=== PATIENT | male | born 1965 | race Caucasian/White ===

== ENCOUNTER 2016-10-16 06:45 | Emergency (ER) | payer BC, OTHER ==
[2016-10-16 06:58] VITALS: BP 144/93; PULSE 70; RESP 18; TEMP 100.2
[2016-10-16] MEDS ORDERED: IBUPROFEN 800 MG TAB PO STA (07:28)
--- NOTE | 2016-10-16 07:31 | ED ---
General Adult HPI - General Chief complaint: Abdominal Pain Stated complaint: rib injury Time Seen by Provider: 10/16/16 07:10 Source: patient, RN notes reviewed Mode of arrival: ambulatory Limitations: no limitations - History of Present Illness Initial comments: This is a 50-year-old male who states he slipped on a wet surface going for 1 area to another 2 days ago when he landed on the edge of the air conditioner unit landing against it with his right ribs. He states she's had right lateral rib pain since that time he states he sees last night and felt a pop. He tries to move or take a deep breath he states the pain is sharp and 10/10 in severity at rest is much improved. He denies any fevers chills sweats any overt shortness of breath he denies any other injuries other than some tingling occasionally to his fingers. He denies any head neck or back pain or other injury. No focal deficits. No cough or phlegm production. - Related Data Previous Rx's Medication Instructions Recorded Ibuprofen [Motrin] 800 mg PO Q6HR PRN #20 tab 10/16/16 Orphenadrine [Norflex] 100 mg PO Q12H #7 tablet.er 10/16/16 Allergies Allergy/AdvReac Type Severity Reaction Status Date / Time No Known Allergies Allergy Verified 10/16/16 06:58 Review of Systems ROS Statement: Those systems with pertinent positive or pertinent negative responses have been documented in the HPI. ROS Other: All systems not noted in ROS Statement are negative. Past Medical History Past Medical History: No Reported History History of Any Multi-Drug Resistant Organisms: None Reported Past Surgical History: Orthopedic Surgery Past Psychological History: No Psychological Hx Reported Smoking Status: Never smoker Past Alcohol Use History: Occasional Past Drug Use History: None Reported General Exam - General Exam Comments Initial Comments: This is a well-developed well-nourished awake alert oriented 3 male Limitations: no limitations General appearance: alert, anxious Head exam: Present: atraumatic, normocephalic, normal inspection Eye exam: Present: normal appearance, PERRL, EOMI. Absent: scleral icterus, conjunctival injection, periorbital swelling ENT exam: Present: normal exam, mucous membranes moist Neck exam: Present: normal inspection, full ROM. Absent: tenderness, meningismus, lymphadenopathy Respiratory exam: Present: normal lung sounds bilaterally, chest wall tenderness (Tenderness palpation over the right lateral chest wall no definite step-off or crepitation). Absent: respiratory distress, wheezes, rales, rhonchi , stridor Cardiovascular Exam: Present: regular rate, normal rhythm, normal heart sounds. Absent: systolic murmur, diastolic murmur, rubs, gallop, clicks GI/Abdominal exam: Present: soft, normal bowel sounds. Absent: distended, tenderness, guarding, rebound, rigid Extremities exam: Present: normal inspection, full ROM, normal capillary refill. Absent: tenderness, pedal edema, joint swelling, calf tenderness Back exam: Present: normal inspection Neurological exam: Present: alert, oriented X3, CN II-XII intact Psychiatric exam: Present: normal affect, normal mood Skin exam: Present: warm, dry, intact, normal color. Absent: rash Course Vital Signs 10/16/16 06:53 Temperature 100.2 F H Pulse Rate 70 Respiratory 18 Rate Blood Pressure 144/93 O2 Sat by Pulse 98 Oximetry Medical Decision Making - Medical Decision Making I did discuss the findings with the patient he states he is asymptomatic he had a cold about a week and a half ago but no rhinorrhea no earaches sore throat cough or other symptoms he does not smoke and did not drink any hot beverages he was informed about the temperature was taken here. He will be discharged the presentation is consistent with rib contusion/chest wall contusion he'll be placed on appropriate medication. - Radiology Data Radiology results: report reviewed (I did review the x-ray and report no acute findings.), image reviewed Disposition Clinical Impression: Contusion of rib on right side, Contusion of ribs Disposition: HOME SELF-CARE Condition: Good Instructions: Rib Contusion (ED), Fever in Adults (ED) Prescriptions: Ibuprofen [Motrin] 800 mg PO Q6HR PRN #20 tab PRN Reason: Pain Orphenadrine [Norflex] 100 mg PO Q12H #7 tablet.er
--- NOTE | 2016-10-16 07:50 | XR ---
EXAMINATION TYPE: XR ribs RT w pa chest xray DATE OF EXAM: 10/16/2016 7:46 AM CLINICAL HISTORY: Fall injury 2 days ago with chest and right-sided rib pain. TECHNIQUE: Single frontal view of the chest is obtained. A frontal and oblique images of the right-si ded ribs are acquired. COMPARISON: None FINDINGS: Slight rotation to the right is present. There is no focal air space opacity, pleural effus ion, or pneumothorax seen. The cardiac silhouette size is within normal limits. Retrocardiac opacity is felt to reflect a moderate size hiatal hernia. The osseous structures are intact. Dedicated images of the right-sided ribs show no acute displaced fracture. Overlying soft tissue is u nremarkable. IMPRESSION: 1. No acute cardiopulmonary process. 2. No acute displaced right-sided rib fractures are seen.
== END 2016-10-16 08:51 | disposition home or self-care (01) ==
LOC: EC 06:45
DX: S20.211A Contusion of right front wall of thorax, initial encounter (principal); R50.9 Fever, unspecified; R10.9 Unspecified abdominal pain; W22.09XA Striking against other stationary object, initial encounter
CPT/HCPCS: 99284

== ENCOUNTER 2016-12-24 06:00 | Day surgery (SDC) | payer BC ==
[~2016-12-24 06:00] MED LIST: DEXAMETHASONE SOD PHOSPHATE 10 MG/ML 1 ML VIAL IV ONE; HEPARIN SODIUM,PORCINE 5,000 UNIT/ML 1 ML VIAL SQ ONE; LIDOCAINE 1% 20 ML VIAL (10MG/ML) FOR IV START INTRADERMA PRN; MIDAZOLAM 2 MG/2 ML VIAL IV PRN; ONDANSETRON 4 MG/2 ML VIAL IVP ONE; Pre Op ABX Message 1 EACH MISC MISCELLANE ONE; SCOPOLAMINE 1.5MG/72HR PATCH TRANSDERM ONE
[2016-12-24] MEDS: LACTATED RINGERS 1,000 ML IV SCH ×3 (06:33→13:13)
[2016-12-24] MEDS ORDERED: GLYCOPYRROLATE 0.2 MG/ML 2 ML VIAL ONE (08:12)
[2016-12-24] MEDS ORDERED: PROPOFOL 10 MG/ML 20 ML VIAL IV ONE (08:12)
[2016-12-24] MEDS ORDERED: ROCURONIUM BROMIDE 10 MG/ML 10 ML VIAL IV ONE (08:12)
[2016-12-24] MEDS ORDERED: ceFAZolin 1,000 MG VIAL ONE (08:12)
[2016-12-24] MEDS ORDERED: NEOSTIGMINE 1 MG/ML 10 ML VIAL ONE (08:12)
[2016-12-24] MEDS ORDERED: SUCCINYLCHOLINE CHLORIDE 100 MG/5 ML SYR IV ONE (08:12)
[2016-12-24] MEDS ORDERED: MIDAZOLAM 2 MG/2 ML VIAL ONE (08:12)
[2016-12-24] MEDS ORDERED: fentaNYL (PF) 50 MCG/ML 2 ML AMP ONE (08:12)
[2016-12-24] MEDS ORDERED: MORPHINE SULFATE (PF) 0.3 MG/0.3 ML SYR ONE (08:12)
--- NOTE | 2016-12-24 08:15 | P.GSHP ---
History of Present Illness H&P Date: 12/24/16 Chief Complaint: Recurrent right inguinal hernia 's is a 51-year-old male presents today for laparoscopic robotic-assisted repair of recurrent right inguinal hernia. Patient [place] surgery [place] Patient developed a mass approximately 3 months ago. Patient has a reducible right inguinal hernia. - Constitutional Constitutional: Reports as per HPI Past Medical History Past Medical History: No Reported History History of Any Multi-Drug Resistant Organisms: None Reported Past Surgical History: Hernia Repair, Orthopedic Surgery Past Psychological History: No Psychological Hx Reported Smoking Status: Never smoker Past Alcohol Use History: Occasional Past Drug Use History: None Reported Medications and Allergies Home Medications Medication Instructions Recorded Confirmed Type No Known Home Medications [No 12/12/16 12/12/16 History Known Home Medications] Allergies Allergy/AdvReac Type Severity Reaction Status Date / Time No Known Allergies Allergy Verified 12/12/16 08:09 Surgical - Exam Vital Signs Temp Pulse Resp BP Pulse Ox 97.7 F 64 16 128/82 98 12/24/16 06:16 12/24/16 06:16 12/24/16 06:16 12/24/16 06:16 12/24/16 06:16 - General well developed, no distress - Eyes PERRL - ENT normal pinna - Neck no masses - Respiratory normal expansion - Cardiovascular Rhythm: regular - Abdomen Abdomen: soft, non tender Hernia: inguinal (recurrent right ), reducible Assessment and Plan Plan: Recurrent right inguinal hernia. We'll perform laparoscopic robotic-assisted repair.
[2016-12-24] MEDS ORDERED: SODIUM CHLORIDE 0.9% 50 ML with ceFAZolin 2,000 MG IV ONE ×2 (08:20)
[2016-12-24] MEDS ORDERED: BUPIVACAIN-EPI 0.25%-1:200,000 30 ML VIAL SQ ONE (08:45)
--- NOTE | 2016-12-24 09:46 | P.OP ---
Date of Procedure: 12/24/16 Preoperative Diagnosis: Recurrent right inguinal hernia Postoperative Diagnosis: Recurrent right inguinal hernia Procedure(s) Performed: Laparoscopic robotic assistance repair of recurrent right inguinal hernia Anesthesia: TJ Surgeon: Kelton Hurd Estimated Blood Loss (ml): 5 Pathology: none sent Condition: stable Disposition: PACU Description of Procedure: Laphe patient's placed on the operating table in the supine position. The patient received general anesthesia. The patient's abdomen was prepped and draped in usual sterile fashion. The skin was anesthetized 1% local Xylocaine at the incision sites. Using an 11 blade a skin incision was made at the umbilicus. The fascia was grasped with a Jyoti and then the peritoneal cavity was entered with the Veress needle. Position of the Veress needle was confirmed with a positive drop test. After adequate insufflation a 5 mm trocar was placed into the peritoneal cavity. The Laparoscope was placed the peritoneal cavity. And a robotic 8 mm trocar was placed in the right lateral position and then another 8 mm robotic trochars placed in the left lateral position. The original 5 mm trocar was exchanged for a 12 mm trocar. The patient was placed in reverse Trendelenburg and then the patient was docked to the robot. Next the peritoneum over top of the hernia was incised and then using blunt and sharp dissection and electrocautery the hernia sac was dissected free from the floor of the inguinal canal. The hernia sac was completely reduced into the peritoneal cavity. And then using the Pro auto servicer mesh the hernia was repaired. The peritoneum was then sutured with 20V lock suture. The patient was then undocked the robot. The needle was withdrawn from the peritoneal cavity. The umbilical trocar site was closed with 0 Ethibond suture. The skin was closed interrupted 3-0 Monocryl suture. Dermabond dressing was applied. Patient was sent to recovery in stable condition.
[2016-12-24] MEDS: HYDROmorphone 1 MG/ML 1 ML SYRINGE IVP PRN ×4 (10:05→10:25)
[2016-12-24] MEDS ORDERED: KETOROLAC 30 MG/ML 1 ML VIAL IVP ONE (10:07)
[2016-12-24 10:15] VITALS: RESP 18; TEMP 97
[2016-12-24] MEDS ORDERED: HYDROcodone/APAP 7.5-325MG 1 EACH TAB PO ONE (11:19)
[2016-12-24 12:45] VITALS: BP 131/66; PULSE 60
== END 2016-12-24 13:20 | disposition home or self-care (01) ==
LOC: OR 06:00
PROVIDERS: ATTEND Surgery
DX: K40.91 Unilateral inguinal hernia, without obstruction or gangrene, recurrent (principal); I10 Essential (primary) hypertension; Z79.899 Other long term (current) drug therapy
CPT/HCPCS: 49651; S2900

== ENCOUNTER 2018-03-24 11:10 | Observation (INO) | payer BC ==
[2018-03-24] MEDS ORDERED: ASPIRIN 81 MG PO STA (12:02)
--- NOTE | 2018-03-24 12:05 | ED ---
General Adult HPI - General Chief complaint: Chest Pain Stated complaint: Headache/Left Arm Pain Time Seen by Provider: 03/24/18 11:48 Source: patient, RN notes reviewed Mode of arrival: ambulatory Limitations: no limitations - History of Present Illness Initial comments: Patient 52-year-old male presenting to the emergency room today with a chief complaint of chest pain. Patient does admit that he's had an elevated blood pressure over the last few weeks. He did see his family doctor a week ago was started on lisinopril patient does admit that the pressure seems to be improving. He does not that he's been having headaches over the last few weeks. Patient does admit to some congestion with sinuses. Patient admits to some chest pain. He states he gets a "twinge" the side of the chest wall that comes and goes. Patient states currently pain-free at this time. Patient admits to have some chest discomfort when checking it. Patient does admit to father had a heart attack in his 50s. He denies any other complaints or symptoms. Patient denies any recent fever, chills, shortness of breath, back pain, abdominal pain, nausea or vomiting, numbness or tingling, dysuria or hematuria, constipation or diarrhea, visual changes, or any other complaints. - Related Data Home Medications Medication Instructions Recorded Confirmed Lisinopril [Zestril] 20 mg PO HS 03/24/18 03/24/18 Allergies Allergy/AdvReac Type Severity Reaction Status Date / Time No Known Allergies Allergy Verified 03/24/18 12:24 Review of Systems ROS Statement: Those systems with pertinent positive or pertinent negative responses have been documented in the HPI. ROS Other: All systems not noted in ROS Statement are negative. Past Medical History Past Medical History: Hypertension History of Any Multi-Drug Resistant Organisms: None Reported Past Surgical History: Hernia Repair, Orthopedic Surgery Past Psychological History: No Psychological Hx Reported Smoking Status: Never smoker Past Alcohol Use History: Occasional Past Drug Use History: None Reported General Exam - General Exam Comments Initial Comments: General: The patient is awake and alert, in no distress, and does not appear acutely ill. Eye: Pupils are equal, round and reactive to light, extra-ocular movements are intact. No nystagmus. There is normal conjunctiva bilaterally. No signs of icterus. Ears, nose, mouth and throat: There are moist mucous membranes and no oral lesions. Tender over the frontal maxillary sinuses. No tenderness in the temporalis. Neck: The neck is supple, there is no tenderness or JVD. Cardiovascular: There is a regular rate and rhythm. No murmur, rub or gallop is appreciated. Respiratory: Lungs are clear to auscultation, respirations are non-labored, breath sounds are equal. No wheezes, stridor, rales, or rhonchi. Musculoskeletal: Normal ROM, no tenderness. Strength 5/5. Sensation intact. Pulses equal bilaterally 2+. Neurological: A&O x 3. CN II-XII intact, There are no obvious motor or sensory deficits. Coordination appears grossly intact. Speech is normal. Skin: Skin is warm and dry and no rashes or lesions are noted. Psychiatric: Cooperative, appropriate mood & affect, normal judgment. Limitations: no limitations Course Vital Signs 03/24/18 03/24/18 03/24/18 11:27 12:08 12:39 Temperature 98.5 F Pulse Rate 59 L 59 L 49 L Respiratory 16 18 Rate Blood Pressure 170/88 128/82 149/91 O2 Sat by Pulse 98 97 Oximetry EKG Findings - EKG Comments: EKG Findings:: EKG performed at 1145: Shows normal sinus rhythm at 60 bpm. KS interval 158. QRS 100. QT/QTC 398/98. No acute ST changes. Medical Decision Making - Medical Decision Making Patient's labs been reviewed and negative cardiac enzymes in the emergency room. Patient's EKG showing no acute changes at this time. Patient chest pain- free. Does have family history. Patient has never had cardiology workup. Patient will be admitted to observation for chest pain rule out. - Lab Data Result diagrams: 03/24/18 11:50 03/24/18 11:50 Lab Results 03/24/18 03/24/18 03/24/18 Range/Units 11:50 11:50 11:50 WBC 4.8 (3.8-10.6) k/uL RBC 4.92 (4.30-5.90) m/uL Hgb 14.5 (13.0-17.5) gm/dL Hct 44.2 (39.0-53.0) % MCV 89.7 (80.0-100.0) fL MCH 29.5 (25.0-35.0) pg MCHC 32.9 (31.0-37.0) g/dL RDW 13.2 (11.5-15.5) % Plt Count 253 (150-450) k/uL Neutrophils % 59 % Lymphocytes % 25 % Monocytes % 8 % Eosinophils % 6 % Basophils % 1 % Neutrophils # 2.8 (1.3-7.7) k/uL Lymphocytes # 1.2 (1.0-4.8) k/uL Monocytes # 0.4 (0-1.0) k/uL Eosinophils # 0.3 (0-0.7) k/uL Basophils # 0.0 (0-0.2) k/uL PT (9.0-12.0) sec INR (<1.2) APTT (22.0-30.0) sec Sodium 135 L (137-145) mmol/L Potassium 4.7 (3.5-5.1) mmol/L Chloride 101 (98-107) mmol/L Carbon Dioxide 24 (22-30) mmol/L Anion Gap 10 mmol/L BUN 18 (9-20) mg/dL Creatinine 1.09 (0.66-1.25) mg/dL Est GFR (CKD-EPI)AfAm 90 (>60 ml/min/1.73 sqM) Est GFR (CKD-EPI)NonAf 78 (>60 ml/min/1.73 sqM) Glucose 96 (74-99) mg/dL Calcium 9.3 (8.4-10.2) mg/dL Magnesium 2.1 (1.6-2.3) mg/dL Total Bilirubin 0.8 (0.2-1.3) mg/dL AST 26 (17-59) U/L ALT 31 (21-72) U/L Alkaline Phosphatase 61 (38-126) U/L Total Creatine Kinase 184 H (55-170) U/L CK-MB (CK-2) 1.9 (0.0-2.4) ng/mL CK-MB (CK-2) Rel Index 1.0 Troponin I <0.012 (0.000-0.034) ng/mL Total Protein 7.0 (6.3-8.2) g/dL Albumin 4.3 (3.5-5.0) g/dL 03/24/18 Range/Units 11:50 WBC (3.8-10.6) k/uL RBC (4.30-5.90) m/uL Hgb (13.0-17.5) gm/dL Hct (39.0-53.0) % MCV (80.0-100.0) fL MCH (25.0-35.0) pg MCHC (31.0-37.0) g/dL RDW (11.5-15.5) % Plt Count (150-450) k/uL Neutrophils % % Lymphocytes % % Monocytes % % Eosinophils % % Basophils % % Neutrophils # (1.3-7.7) k/uL Lymphocytes # (1.0-4.8) k/uL Monocytes # (0-1.0) k/uL Eosinophils # (0-0.7) k/uL Basophils # (0-0.2) k/uL PT 10.1 (9.0-12.0) sec INR 1.0 (<1.2) APTT 24.2 (22.0-30.0) sec Sodium (137-145) mmol/L Potassium (3.5-5.1) mmol/L Chloride (98-107) mmol/L Carbon Dioxide (22-30) mmol/L Anion Gap mmol/L BUN (9-20) mg/dL Creatinine (0.66-1.25) mg/dL Est GFR (CKD-EPI)AfAm (>60 ml/min/1.73 sqM) Est GFR (CKD-EPI)NonAf (>60 ml/min/1.73 sqM) Glucose (74-99) mg/dL Calcium (8.4-10.2) mg/dL Magnesium (1.6-2.3) mg/dL Total Bilirubin (0.2-1.3) mg/dL AST (17-59) U/L ALT (21-72) U/L Alkaline Phosphatase (38-126) U/L Total Creatine Kinase (55-170) U/L CK-MB (CK-2) (0.0-2.4) ng/mL CK-MB (CK-2) Rel Index Troponin I (0.000-0.034) ng/mL Total Protein (6.3-8.2) g/dL Albumin (3.5-5.0) g/dL Disposition Clinical Impression: Chest pain Disposition: ADMITTED IP TO THIS HOSP Condition: Good Is patient prescribed a controlled substance at d/c from ED?: No Referrals: Keith Caldera MD [Primary Care Provider] - 1-2 days Time of Disposition: 13:18
[2018-03-24 12:20] LABS: Basophils % (A) 1 %; Eosinophils # (A) 0.3 k/uL (0-0.7); Eosinophils % (A) 6 %; HCT 44.2 % (39.0-53.0); HGB 14.5 gm/dL (13.0-17.5); Lymphocytes # (A) 1.2 k/uL (1.0-4.8); Lymphocytes % (A) 25 %; MCH 29.5 pg (25.0-35.0); MCHC 32.9 g/dL (31.0-37.0); MCV 89.7 fL (80.0-100.0); Mean Platelet Volume 6.5; Monocytes # (A) 0.4 k/uL (0-1.0); Monocytes % (A) 8 %; Neutrophils # (A) 2.8 k/uL (1.3-7.7); Neutrophils % (A) 59 %; Platelet Count 253 k/uL (150-450); RBC 4.92 m/uL (4.30-5.90); RDW 13.2 % (11.5-15.5); WBC 4.8 k/uL (3.8-10.6)
[2018-03-24 12:31] LABS: Albumin 4.3 g/dL (3.5-5.0); Calcium 9.3 mg/dL (8.4-10.2); Magnesium 2.1 mg/dL (1.6-2.3); Potassium 4.7 mmol/L (3.5-5.1); Total Bilirubin 0.8 mg/dL (0.2-1.3)
[2018-03-24 12:33] LABS: Partial Thromboplastin Time 24.2 sec (22.0-30.0); Prothrombin Time 10.1 sec (9.0-12.0)
[2018-03-24 12:37] LABS: Creatine Kinase 184 U/L (55-170)
--- NOTE | 2018-03-24 12:38 | XR ---
EXAMINATION TYPE: XR chest 2V DATE OF EXAM: 03/24/2018 COMPARISON: 10/16/2016 TECHNIQUE: PA and lateral views submitted. HISTORY: Chest pain FINDINGS: The lungs are clear and there is no pneumothorax, pleural effusion, or focal pneumonia. Nodular den sity along the lateral margin of the right lower lobe likely related to nipple shadow. Hyperinflation suggests COPD and there is hypertrophic and degenerative change of the spine. No overt failure. IMPRESSION: 1. No acute process. Probable nipple shadow right lower lobe could be confirmed with short-term follo w-up x-ray with nipple markers.
[2018-03-24 12:50] LABS: Creatine Kinase MB 1.9 ng/mL (0.0-2.4); Troponin I <0.012 ng/mL (0.000-0.034)
[2018-03-24] MEDS ORDERED: NITROGLYCERIN SL TABS 0.4 MG TAB SUBLINGUAL PRN (13:18)
[2018-03-24] MEDS ORDERED: SODIUM CHLORIDE 0.9% 1,000 ML IV ONE (13:18)
[2018-03-24] MEDS: ACETAMINOPHEN TAB 500 MG TAB PO PRN (14:59)
[2018-03-24 18:27] LABS: Creatine Kinase 154 U/L (55-170)
[2018-03-24 18:40] LABS: Creatine Kinase MB 1.4 ng/mL (0.0-2.4); Troponin I <0.012 ng/mL (0.000-0.034)
[2018-03-24] MEDS ORDERED: LISINOPRIL 20 MG TAB PO SCH (21:00)
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
[2018-03-25 00:51] LABS: Creatine Kinase 128 U/L (55-170)
[2018-03-25 01:04] LABS: Creatine Kinase MB 1.3 ng/mL (0.0-2.4); Troponin I <0.012 ng/mL (0.000-0.034)
[2018-03-25 01:52] LABS: Cholesterol 220 mg/dL (<200); HDL Cholesterol 36 mg/dL (40-60); LDL Cholesterol,Calculated 162 mg/dL (0-99); Triglycerides 108 mg/dL (<150)
[2018-03-25 07:41] VITALS: RESP 18
[2018-03-25] MEDS ORDERED: SODIUM CHLORIDE 0.9% 1,000 ML in EMPTY BAG 1 BAG IV ONE (08:24)
[2018-03-25] MEDS ORDERED: ATORVASTATIN 80 MG TAB PO STA (08:27)
[2018-03-25] MEDS ORDERED: ASPIRIN 325 MG TAB PO SCH (09:00)
[2018-03-25] MEDS ORDERED: LISINOPRIL-HCTZ 10-12.5 MG 1 EACH TAB PO SCH (09:00)
--- NOTE | 2018-03-25 09:12 | XR ---
EXAMINATION TYPE: XR cervical spine w flex/ext DATE OF EXAM: 03/25/2018 COMPARISON: NONE HISTORY: Neck pain TECHNIQUE: Six views are submitted including flexion-extension lateral views. FINDINGS: The odontoid is intact. There are no compression deformities. The prevertebral soft tissue structur es are within normal limits. Calcification within the soft tissue the right neck likely related parra tid artery atherosclerotic changes. Hypertrophic change and degenerative disc disease at C5-6 and C6-C7. There is a 2 mm anterolisthesis C4 on C5 on flexion views only. IMPRESSION: 1. Hypertrophic and degenerative changes C5-6 and C6-C7. On flexion views there is a 2 mm anterolisth esis of C4 on C5. 2. Atherosclerotic changes involving the right carotid bifurcation.
[2018-03-25] MEDS ORDERED: MIDAZOLAM 2 MG/2 ML VIAL ONE (09:40)
[2018-03-25] MEDS ORDERED: LIDOCAINE 1% INJ 10MG/ML (20 ML MDV) ONE (09:42)
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
[2018-03-25] MEDS ORDERED: LIDOCAINE 1% INJ 10MG/ML (20 ML MDV) SQ ONE (10:19)
[2018-03-25] MEDS ORDERED: MIDAZOLAM 2 MG/2 ML VIAL IVP ONE ×2 (10:21→10:24)
[2018-03-25] MEDS ORDERED: IV FLUID CONTINUATION 1,000 ML IV ONE (10:22)
[2018-03-25] MEDS ORDERED: IOPAMIDOL-370 125ML BTL INJ ONE (10:41)
[2018-03-25] MEDS ORDERED: IOPAMIDOL-300 50ML BTL INJ ONE (10:46)
--- NOTE | 2018-03-25 11:05 | ECHOF ---
Referral Reason:chest pain MEASUREMENTS -------- HEIGHT: 152.4 cm WEIGHT: 108.0 kg BP: 117/63 IVSd: 1.2 cm (0.6 - 1.1) LVIDd: 5.3 cm (3.9 - 5.3) LVPWd: 1.1 cm (0.6 - 1.1) IVSs: 1.6 cm LVIDs: 4.1 cm LVPWs: 1.2 cm LA Diam: 3.0 cm (2.7 - 3.8) Ao Diam: 3.8 cm (2.0 - 3.7) AV Cusp: 2.1 cm (1.5 - 2.6) LA Diam: 4.6 cm (2.7 - 3.8) MV EXCURSION: 29.870 mm (> 18.000) MV EF SLOPE: 140 mm/s (70 - 150) EPSS: 1.0 cm MV E Calixto: 0.99 m/s MV DecT: 207 ms MV A Calixto: 0.73 m/s MV E/A Ratio: 1.37 RAP: 5.00 mmHg RVSP: 12.04 mmHg FINDINGS -------- Sinus rhythm. This was a technically adequate study. There is borderline concentric left ventricular hypertrophy. There is normal global left ventricula r contractility. Overall left ventricular systolic function is low-normal with, an EF between 50 - 55 %. The right ventricle is normal in size. The left atrial size is normal. The right atrial size is normal. There is mild aortic valve sclerosis. There is no evidence of aortic regurgitation. Mild mitral annular calcification present. Mild mitral regurgitation is present. Mild tricuspid regurgitation present. There is no evidence of pulmonary hypertension. The right v entricular systolic pressure, as measured by Doppler, is 12.04mmHg. Trace/mild (physiologic) pulmonic regurgitation. The aortic root size is normal. There is no pericardial effusion. CONCLUSIONS -------- 1. There is borderline concentric left ventricular hypertrophy. 2. There is normal global left ventricular contractility. 3. Overall left ventricular systolic function is low-normal with, an EF between 50 - 55 %. 4. The right ventricle is normal in size. 5. The left atrial size is normal. 6. The right atrial size is normal. 7. There is mild aortic valve sclerosis. 8. Mild mitral annular calcification present. 9. Mild mitral regurgitation is present. 10. Mild tricuspid regurgitation present. 11. There is no evidence of pulmonary hypertension. 12. The right ventricular systolic pressure, as measured by Doppler, is 12.04mmHg. 13. Trace/mild (physiologic) pulmonic regurgitation. 14. The aortic root size is normal. 15. There is no pericardial effusion. FITTING ROOM SUPERVISOR: Sarah Zheng RDCS
[2018-03-25] MEDS ORDERED: RX INFO: IV CONTRAST WAS GIVEN 1 EACH MISC MISCELLANE PRN (11:27)
--- NOTE | 2018-03-25 11:33 | CC ---
CARDIAC CATHETERIZATION REPORT INDICATION: Unstable angina. PROCEDURE NOTE: After obtaining informed consent, left heart catheterization, coronary angiogram and aortogram were performed via the right femoral artery using standard Andrea catheters. The patient tolerated the procedure well without any obvious immediate complications. A femoral angiogram was performed and Angio-Seal was deployed for hemostasis. Patient received moderate conscious sedation. Total sedation time was 26 minutes. FINDINGS: 1. HEMODYNAMICS: Left ventricular end-diastolic pressure is 10 to 14 mm there is no significant gradient across aortic valve. 2. Aortogram. Aortogram was performed to locate the circumflex coronary artery and it was found to originate right next to the right coronary artery. There is no aortic aneurysm or dissection. 3. INJECTION OF THE [place] CORONARIES: LAD is a small caliber vessel that stops prior to the apex, but both the LAD and diagonal are free of significant disease. Right coronary artery is a large dominant vessel and is free of significant stenosis. The [place] circumflex coronary artery was engaged using a catheter and it is originating right next to the right coronary artery and is free of significant disease. CONCLUSIONS: 1. Normal left circumflex coronary artery. 2. Right dominant circulation. 3. No significant obstructive coronary artery disease. PLAN: Patient's management is going to be aggressive risk factor modification. 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 MMODL / IJN: [id number] /
[2018-03-25] MEDS: ACETAMINOPHEN TAB 500 MG TAB PO PRN (14:29)
[2018-03-25 15:38] VITALS: BP 125/80; PULSE 64; TEMP 98.7
--- NOTE | 2018-03-25 21:57 | DS ---
DISCHARGE SUMMARY DATE OF ADMISSION: 03/24/2018 DATE OF DISCHARGE: 03/25/2018 FINAL DIAGNOSES: 1. Essential hypertension, accelerated, causing cephalgia and epistaxis, present on admission. 2. 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 3. Hyperlipidemia. 4. Gastroesophageal reflux disease. 5. Obesity; body mass index 34.2. 6. 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 PROCEDURE: Cardiac catheterization. HOSPITAL COURSE: This patient presented with pain in the neck and left arm. Blood pressure was uncontrolled. Antihypertensive medications were adjusted. The patient did undergo cardiac catheterization by Cardiology that showed normal coronaries. Two-D echo showed preserved LV function; 55% to 60% EF. Cervical spine x-ray did show C4 to C7 osteoarthritis probably causing some radiculopathy in the left arm. The patient is overall doing much better. On examination, lungs are clear. CARDIOVASCULAR: First and second sounds normal. CONSULTATION: Dr. Chano Viera from Cardiology. DISCHARGE MEDICATIONS: 1. Tylenol 1000 mg q.6 p.r.n. 2. Lipitor 40 mg p.o. daily. 3. Zestoretic 06/05.5 one tablet p.o. b.i.d. Follow up with Dr. Caldera in 1 week. Follow up with Dr. Chano Viera in 1 week. MMODL / IJN: [id number] /
[2018-03-26] MEDS ORDERED: ASPIRIN 81 MG PO SCH (09:00)
[2018-03-26] MEDS ORDERED: ATORVASTATIN 40 MG TAB PO SCH (09:00)
== END 2018-03-25 18:15 | disposition home or self-care (01) ==
LOC: EC 11:10 → 3OBS 13:44
PROVIDERS: ADMIT Hospitalist; ATTEND Hospitalist
DX: I10 Essential (primary) hypertension (principal); R07.89 Other chest pain; M47.812 Spondylosis without myelopathy or radiculopathy, cervical region; K21.9 Gastro-esophageal reflux disease without esophagitis; E78.5 Hyperlipidemia, unspecified; L40.9 Psoriasis, unspecified; L91.0 Hypertrophic scar; E66.9 Obesity, unspecified; Z68.34 Body mass index [BMI] 34.0-34.9, adult; Z79.899 Other long term (current) drug therapy; Z87.09 Personal history of other diseases of the respiratory system; Z87.442 Personal history of urinary calculi; Z83.3 Family history of diabetes mellitus; Z82.49 Family history of ischemic heart disease and other diseases of the circulatory system
CPT/HCPCS: 99285 ×2; 36415; 93005; 93306; 93458; 93567; 80061; 80053; 82550 ×2; 82553 ×2; 83735; 84484 ×2; 85025; 85610; 85730; 72052; 71046; G0378 ×2; C1760; C1894; C1769; J2250; J2001; Q9967 ×2

== ENCOUNTER 2018-04-10 08:28 | Day surgery (SDC) | payer BC ==
[2018-04-08 10:37] VITALS: BMI 33.0
[~2018-04-10 08:28] MED LIST changes: -DEXAMETHASONE SOD PHOSPHATE 10 MG/ML 1 ML VIAL IV ONE; -HEPARIN SODIUM,PORCINE 5,000 UNIT/ML 1 ML VIAL SQ ONE; +LACTATED RINGERS 1,000 ML IV SCH; -MIDAZOLAM 2 MG/2 ML VIAL IV PRN; -ONDANSETRON 4 MG/2 ML VIAL IVP ONE; -Pre Op ABX Message 1 EACH MISC MISCELLANE ONE; -SCOPOLAMINE 1.5MG/72HR PATCH TRANSDERM ONE
[2018-04-10 09:17] VITALS: RESP 16; TEMP 97.8
[2018-04-10] MEDS ORDERED: GLYCOPYRROLATE 0.2 MG/ML 2 ML VIAL ONE (09:46)
[2018-04-10] MEDS ORDERED: LIDOCAINE 1% INJ 10MG/ML (20 ML MDV) ONE (09:46)
[2018-04-10] MEDS ORDERED: PROPOFOL 10 MG/ML 20 ML VIAL IV ONE (09:46)
--- NOTE | 2018-04-10 10:04 | P.PCN ---
Date of Procedure: 04/10/18 Procedure(s) Performed: BRIEF HISTORY: Patient is a 52-year-old, pleasant, white male, scheduled for an upper endoscopy as a part of evaluation of GERD and intermittent dysphagia to solids for the last several years duration.. PROCEDURE PERFORMED: Esophagogastroduodenoscopy with biopsy and dilation. PREOPERATIVE DIAGNOSIS: Intermittent dysphagia to solids and GERD. IV sedation per anesthesia. PROCEDURE: After informed consent was obtained, the patient was brought into the endoscopy unit. IV sedation was administered by Anesthesia under continuous monitoring. Initially the Olympus GIF-140 video endoscope was inserted into the mouth. Esophagus intubated without any difficulty. It was gradually advanced into the stomach and duodenum and carefully examined. The bulb and the second part of the duodenum appeared normal. The scope at this time was withdrawn to the stomach, adequately insufflated with air, and upon careful examination, mucosa of the antrum, had mild gastritis and biopsies were done from this area. The body, cardia and the fundus appeared normal. The scope was then withdrawn into the esophagus. Moderate size hiatal hernia noted. The GE junction was located at 35 cm from the incisors. There was circumferential erythema of the GE junction consistent with LA grade a reflux esophagitis. Also there was early distal esophageal stricture identified and this was dilated using a 15-18 mm TTS balloon for total of 90 seconds in a sequential fashion. The rest of the esophagus appeared normal. Biopsies were done from the mid and distal esophagus and the patient tolerated the procedure well. IMPRESSION: 1. Distal esophageal early stricture status post balloon dilation using 15-18 mm TTS balloon as described above. L A Grade A reflux esophagitis 2. Moderate size hiatal hernia. 3. Mild gastritis RECOMMENDATIONS: The findings of this examination were discussed with the patient as well as his family. He was advised to follow with the biopsy results. In the meantime she was given her perception for Prilosec 20 mg daily to be taken half hour before breakfast and follow antireflux measures. He will remain on a clear liquid diet today.
[2018-04-10 10:11] VITALS: BP 111/69; PULSE 50
== END 2018-04-10 10:48 | disposition home or self-care (01) ==
LOC: ORWHC2ENDO 08:28
PROVIDERS: ATTEND Internal Medicine Gastroenterology
DX: K44.9 Diaphragmatic hernia without obstruction or gangrene (principal); K29.70 Gastritis, unspecified, without bleeding; K21.0 Gastro-esophageal reflux disease with esophagitis; K22.2 Esophageal obstruction; I10 Essential (primary) hypertension; E78.5 Hyperlipidemia, unspecified; Z79.899 Other long term (current) drug therapy
CPT/HCPCS: 88305; 43239; 43249; J2001; J2704; C1726

== ENCOUNTER 2020-04-05 08:35 | Emergency (ER) | payer SELFPAY ==
[2020-04-05 08:41] VITALS: TEMP 98.4
[2020-04-05] MEDS ORDERED: KETOROLAC 15 MG/ML 1 ML VIAL IVP STA (08:56)
[2020-04-05] MEDS ORDERED: SODIUM CHLORIDE 0.9% 1,000 ML IV STA (08:56)
[2020-04-05] MEDS ORDERED: LIDOCAINE 5% PATCH TOPICAL STA (08:57)
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
--- NOTE | 2020-04-05 09:29 | XR ---
EXAMINATION TYPE: XR lumbar spine 2 or 3V DATE OF EXAM: 04/05/2020 CLINICAL HISTORY: Atraumatic back pain. Pain from lifting. TECHNIQUE: Frontal and lateral images of the lumbar spine obtained. COMPARISON: None. FINDINGS: There are 5 lumbar type vertebral bodies identified. The lumbar spine shows satisfactory alignment without evidence of acute fracture or dislocation. Vertebral body heights are within normal limits. No significant disc space narrowing. There is multilevel anterior osteophytic spurring. No e vidence of spondylolisthesis. The overlying soft tissue appears unremarkable. IMPRESSION: 1. No acute fracture or dislocation is seen in the lumbar spine. 2. Degenerative disc disease.
[2020-04-05] MEDS ORDERED: DEXAMETHASONE SOD PHOSPHATE 10 MG/ML 1 ML VIAL IV STA (09:33)
[2020-04-05 10:52] LABS: Appearance,Urine Clear (Clear); Bilirubin,Urine Negative (Negative); Blood,Urine Trace (Negative); Color,Urine Yellow; Glucose,Urine (UA) Negative (Negative); Ketones,Urine Negative (Negative); Leukocyte Esterase,Urine Negative (Negative); Mucus,Urine Rare /hpf; Nitrite,Urine Negative (Negative); PH, Urine 5.5 (5.0-8.0); Protein,Urine Negative (Negative); RBC,Urine 1 /hpf (0-5); Specific Gravity,Urine 1.019 (1.001-1.035); Squamous Epithelial Cell,Urine <1 /hpf (0-4); Urobilinogen,Urine <2.0 mg/dL (<2.0)
[2020-04-05] MEDS ORDERED: ACET/COD 300 MG/30 MG STARTER PACK 6 TAB BTL PO STA (11:05)
[2020-04-05 11:24] VITALS: BP 143/95; PULSE 53; RESP 18
== END 2020-04-05 11:27 | disposition home or self-care (01) ==
LOC: EC 08:35
DX: M54.9 Dorsalgia, unspecified (principal)
CPT/HCPCS: 81001; 72100; 99283; 96374; 96375; 96361; J1100; J1885